=== PATIENT | female | born 1960 | race Caucasian/White ===

== ENCOUNTER 2020-03-04 12:36 | Outpatient (CLI) | payer OTHER ==
--- NOTE | 2020-03-04 13:26 | RAD ---
EXAM: 2 views of the thoracic spine HISTORY: Thoracic spine pain COMPARISON: None FINDINGS: 2 views of the thoracic spine shows normal height and alignment of the vertebral bodies without fracture or subluxation. Mild diffuse degenerative changes are seen with intervertebral disc space narrowing and osteophyte formation. IMPRESSION: Mild degenerative changes of the thoracic spine without acute osseous abnormality.
--- NOTE | 2020-03-04 13:28 | RAD ---
EXAM: 5 views of the cervical spine HISTORY: Chronic neck pain COMPARISON: None FINDINGS: AP, lateral, flexion/extension, and open mouth odontoid views of the cervical spine shows n ormal height and alignment of the vertebral bodies without fracture or subluxation. Moderate degenerative changes are seen in the lower cervical spine with intervertebral disc space narrowing an d osteophyte formation at C5/6 and C6/7. No prevertebral soft tissue swelling is seen. Alignment is unchanged with flexion and extension. IMPRESSION: Degenerative changes of the lower cervical spine as above.
--- NOTE | 2020-03-04 16:38 | MRI ---
Exam: MRI cervical spine without contrast HISTORY: Neck pain.. COMPARISON: None FINDINGS: Appropriate T1 marrow signal intensity of the cervical vertebra. Cervical spine vertebral body heigh t is maintained. No fracture. No significant STIR hyperintensity to suggest vertebral body edema or ligamentous injury Visualized brain parenchyma, cervicomedullary junction, cervical cord and the upper thoracic cord hav e a normal size and signal intensity C2-C3: No significant posterior disc abnormality. No significant central canal stenosis or significan t neural foraminal narrowing C3-C4: No significant posterior disc abnormality. No significant central canal stenosis or significan t neural foraminal narrowing C4-C5: Broad-based disc bulge abuts the thecal sac. Mild central canal stenosis. Mild bilateral neura l foraminal narrowing due to uncovertebral hypertrophy C5-C6: Desiccation with moderate loss of disc space height. Broad-based discussed by braden saab e thecal sac and nearly effaces the ventral subarachnoid space. Mild central canal stenosis. Mild bilateral neural foraminal narrowing due to uncovertebral hypertrophy. C6-C7: Disc desiccation with mild loss of disc space height. Broad-based discussed by braden pennington he thecal sac. Mild central canal stenosis. Mild to moderate bilateral neural foraminal narrowing. C7-T1: No significant posterior disc abnormality. No significant central canal stenosis or significan t neural foraminal narrowing. IMPRESSION: Degenerative changes of the cervical spine as detailed above.
--- NOTE | 2020-03-04 16:44 | MRI ---
MRI thoracic spine noncontrast: 03/04/2020 HISTORY: 59-year-old male with mid back pain: M 55.6 thoracic spine pain COMPARISON: None FINDINGS: Exaggerated kyphosis of mid thoracic spine. Vertebral body heights are maintained. Normal bone marrow signal. No scoliosis. Mild-moderate disc space narrowing at multiple levels throughout mid and lower thoracic spine. Disc space narrowing is radius at T9-10, where there is mild endplate irregularity, followed by T10-1 1. No major pathology of perivertebral spaces. Numerous tiny disc protrusions, mostly broad-based but some focal, indent the ventral surface of the thecal sac throughout most levels of the upper, mid, and lower thoracic spine. These are larger at T9-T10 and especially T10-11: At T9-T10, there is a small central and bilateral paracentral disc herniation that abuts and slightly indents the ventral surface of the spinal cord. At T10-11, there is a larger, small to moderate-sized central and bilateral paracentral disc herniati on that indents the ventral surface of the spinal cord, slightly posteriorly displaces it. At this level, there is mild to moderate central spinal canal stenosis and moderate thecal sac stenosis. No high-grade neural foraminal stenosis at any level. There is a 0.9 x 0.5 x 0.5 cm nerve root sleeve cyst in the left C7-T1 neural foramen. IMPRESSION: 1.) Disc herniation at T10-11, mildly impinging on lower thoracic spinal cord. 2) small or disc herniation at T9-T10, mildly impinging on lower thoracic spinal cord, to a lesser de gree than at T10-11. 3) multilevel mild to moderate thoracic degenerative disc disease. 4) exaggerated kyphosis.
== END 2020-03-04 12:37 | disposition home or self-care (01) ==
LOC: SCSMRI 12:36
PROVIDERS: ATTEND Neurological Surgery
DX: M54.6 Pain in thoracic spine (principal); M54.2 Cervicalgia; M25.561 Pain in right knee; M25.562 Pain in left knee; M25.521 Pain in right elbow; M25.522 Pain in left elbow; M79.671 Pain in right foot; M79.672 Pain in left foot; M47.812 Spondylosis without myelopathy or radiculopathy, cervical region; M47.814 Spondylosis without myelopathy or radiculopathy, thoracic region; M51.24 Other intervertebral disc displacement, thoracic region; M25.80 Other specified joint disorders, unspecified joint; M51.34 Other intervertebral disc degeneration, thoracic region; M40.294 Other kyphosis, thoracic region
CPT/HCPCS: 72050; 72070; 72141; 72146

== ENCOUNTER 2023-01-25 17:18 | Outpatient (CLI) | payer OTHER | END 2023-01-25 17:19 | disposition home or self-care (01) | LOC: SCSRAD 17:18 | PROVIDERS: ATTEND Nurse Practitioner Family | DX: M25.561 Pain in right knee (principal); M17.11 Unilateral primary osteoarthritis, right knee | CPT/HCPCS: 36415; 80053; 80061; 85025 ==

== ENCOUNTER 2023-04-17 15:51 | Outpatient (CLI) | payer OTHER | END 2023-04-17 15:52 | disposition home or self-care (01) | LOC: SCSRAD 15:51 | PROVIDERS: ATTEND Family Medicine | DX: S69.92XA Unspecified injury of left wrist, hand and finger(s), initial encounter (principal) ==

== ENCOUNTER 2023-07-31 05:49 | Day surgery (SDC) | payer OTHER ==
[2023-07-25 14:04] VITALS: BMI 31.7
[2023-07-31] MEDS ORDERED: EPINEPHrine 1 MG/ML VIAL ONE (06:09)
[2023-07-31] MEDS ORDERED: Bupivacaine PF 0.5% 30 ML VIAL ONE (06:10)
[2023-07-31] MEDS ORDERED: Thrombin 5000 UNITS/5 ML VIAL ONE (06:10)
[2023-07-31] MEDS ORDERED: Rocuronium Bromide 10 MG/ML (10ML VIAL) ONE ×2 (06:36→07:05)
[2023-07-31] MEDS ORDERED: fentaNYL PF 100 MCG/2 ML SYRINGE ONE (06:36)
[2023-07-31] MEDS ORDERED: Lidocaine 2% PF 5 ML VIAL ONE (06:36)
[2023-07-31] MEDS ORDERED: PROPOFOL 20 ML ONE (06:36)
[2023-07-31] MEDS ORDERED: Sodium Chloride 0.9% 100 ML ONE ×2 (06:44→10:36)
[2023-07-31] MEDS ORDERED: CEFAZOLIN 2 GM VIAL ONE ×2 (06:44→10:36)
[2023-07-31] MEDS ORDERED: Famotidine/PF 20 mg/2ml Vial ONE (06:56)
[2023-07-31] MEDS ORDERED: HYDROmorphone 0.5 MG/0.5 ML SYRINGE ONE (06:56)
[2023-07-31] MEDS ORDERED: Hydrocortisone Sod Succ/PF 100 mg/2 ml Vial ONE (06:57)
[2023-07-31] MEDS ORDERED: Lidocaine 1% PF 5 ML VIAL ONE (07:05)
[2023-07-31] MEDS ORDERED: Ondansetron PF 4 MG/2 ML Vial ONE ×2 (07:05→07:31)
[2023-07-31] MEDS ORDERED: PROPOFOL 200 MG/20 ML VIAL ONE (07:05)
[2023-07-31] MEDS ORDERED: Dexamethasone 20 MG/5 ML VIAL ONE (07:05)
[2023-07-31] MEDS ORDERED: Dexamethasone 4 mg/ml Vial ONE (07:31)
[2023-07-31] MEDS ORDERED: SUGAMMADEX SODIUM 200 MG/2 ML VIAL ONE (07:35)
[2023-07-31] MEDS ORDERED: fentaNYL 50 mcg/mL 1 mL Vial ONE (08:53)
[2023-07-31] MEDS ORDERED: hydrALAZINE 20 MG/ML VIAL ONE (09:07)
[2023-07-31] MEDS ORDERED: HYDROcodone/Acetaminophen 5/325 mg Tablet ONE (10:12)
== END 2023-07-31 11:33 | disposition home or self-care (01) ==
LOC: SDC 05:49
PROVIDERS: ATTEND Neurological Surgery
PROC: 0SG107J Fusion of 2 or more Lumbar Vertebral Joints with Autologous Tissue Substitute, Posterior Approach, Anterior Column, Open Approach (ICD-10-PCS; principal; 2023-07-31)
DX: M48.062 Spinal stenosis, lumbar region with neurogenic claudication (principal); M43.16 Spondylolisthesis, lumbar region; M47.816 Spondylosis without myelopathy or radiculopathy, lumbar region; E03.9 Hypothyroidism, unspecified; M06.9 Rheumatoid arthritis, unspecified; M34.9 Systemic sclerosis, unspecified; Z79.899 Other long term (current) drug therapy
CPT/HCPCS: 36416; C1713; J0171; J0360; J1100; J1170; J1720; J2001; J2405; J2704; J3010; J3490; S0020; S0028

== ENCOUNTER 2024-07-28 18:01 | Inpatient (IN) | payer MEDICARE, MEDICAID ==
[2024-07-28 20:58] LABS: #Basophils 0.05 10x3/uL (0.0-0.2); %Basophils 0.4 % (0.0-1.0); %Eosinophils 0.6 % (0.0-10.0); %Lymphocytes 14.1 % (21.0-51.0); %Neutrophils 76.4 % (42.0-75.0); Hematocrit 39.6 % (36.0-47.0); Hemoglobin 12.3 g/dL (12.0-16.0); Mean Corpuscular HGB CONC 31.1 g/dL (32.0-36.0); Mean Corpuscular Hemoglobin 25.7 pg (27.0-31.0); Mean Corpuscular Volume 82.7 fL (78.0-98.0); Mean Platelet Volume 9.9 fL (7.4-10.4); Platelet Count 464 10x3/uL (130-400); RBC Distribution Width 17.1 % (11.5-14.5); Red Blood Cell (RBC) Count 4.79 mill/uL (4.20-5.40)
[2024-07-28 21:13] LABS: ALT (SGPT) 30 U/L (8-55); AST (SGOT) 24 U/L (5-34); Alkaline Phosphatase 277 U/L (40-110); Anion Gap 17 mmol/L (10-20); BUN (Urea Nitrogen) 6 mg/dL (9.8-20.1); Bilirubin, Total 1.1 mg/dL (0.2-1.2); Calc. Creatinine Clearance 0 mL/min (70-130); Calcium 9.9 mg/dL (7.8-10.44); Carbon Dioxide 23 mmol/L (23-31); Chloride 100 mmol/L (98-107); Estimated GFR 100; Globulin 3.8 g/dL (2.4-3.5); Glucose 117 mg/dL (80-115); Lipase 18 U/L (8-78); Potassium 2.8 mmol/L (3.5-5.1); Protein, Total 6.8 g/dL (5.8-8.1); Sodium 137 mmol/L (136-145)
[2024-07-28] MEDS ORDERED: NS 0.9% w/ 20 MEQ KCL 1,000 ML ONE (21:42)
[2024-07-28] MEDS ORDERED: Ondansetron ODT 4 MG TAB SL PRN (23:00)
[2024-07-28] MEDS ORDERED: Acetaminophen 325 MG TAB PO PRN (23:39)
[2024-07-28] MEDS ORDERED: Potassium Chloride 40 MEQ in Premix 1 BAG IVPB SCH (23:45)
[2024-07-29 00:08] VITALS: BMI 25.9
[2024-07-29] MEDS: Potassium Chloride 20 MEQ in Premix 1 BAG IVPB SCH (00:17)
[2024-07-29] MEDS: Sodium Chloride 0.9% 1,000 ML IV SCH (00:17)
[2024-07-29] MEDS: Ketorolac Tromethamine 30 MG (1 mL) VIAL ONE (02:14)
[2024-07-29] MEDS: Ondansetron PF 4 MG/2 ML Vial IVP PRN (02:14)
[2024-07-29] MEDS: Ketorolac Tromethamine 30 MG (1 mL) VIAL IVP SCH (02:17)
[2024-07-29] MEDS: Morphine 2 MG/ML VIAL SLOW IVP SCH (02:21)
[2024-07-29 04:56] LABS: #Basophils 0.03 10x3/uL (0.0-0.2); %Basophils 0.3 % (0.0-1.0); %Eosinophils 0.5 % (0.0-10.0); %Lymphocytes 14.6 % (21.0-51.0); %Monocytes 8.9 % (0.0-10.0); %Neutrophils 75.2 % (42.0-75.0); Hematocrit 31.3 % (36.0-47.0); Hemoglobin 9.8 g/dL (12.0-16.0); Mean Corpuscular HGB CONC 31.3 g/dL (32.0-36.0); Mean Corpuscular Hemoglobin 25.9 pg (27.0-31.0); Mean Corpuscular Volume 82.8 fL (78.0-98.0); Mean Platelet Volume 10.5 fL (7.4-10.4); Platelet Count 359 10x3/uL (130-400); RBC Distribution Width 16.9 % (11.5-14.5); Red Blood Cell (RBC) Count 3.78 mill/uL (4.20-5.40)
[2024-07-29 05:28] LABS: Anion Gap 11 mmol/L (10-20); BUN (Urea Nitrogen) 5 mg/dL (9.8-20.1); Calc. Creatinine Clearance 129 mL/min (70-130); Carbon Dioxide 21 mmol/L (23-31); Chloride 108 mmol/L (98-107); Estimated GFR 107; Glucose 100 mg/dL (80-115); Potassium 3.1 mmol/L (3.5-5.1); Sodium 137 mmol/L (136-145)
[2024-07-29 06:43] LABS: Bacteria/HPF None Seen HPF (None Seen); Bilirubin Negative (Negative); Blood, Urine Negative (Negative); CAUTI Indications for Culture Dysuria,urgency,freq; Clarity Clear (Clear); Glucose, Urine (Dipstick) Normal (Negative); Ketone, Urine Negative (Negative); Leukocyte Negative Leu/uL (Negative); Nitrite Negative (Negative); Protein, Urine (Dipstick) Negative (Neg-Trace); RBC/HPF 0-3 HPF (0-3); Specific Gravity, Urine 1.005 (1.002-1.036); Squamous Epithelial 0-3 HPF (0-3); Urobilinogen Normal mg/dL (Less than 2); WBC/HPF 0-3 HPF (0-3); pH, Urine 7.5 (5.0-9.0)
[2024-07-29 06:47] LABS: Urine Culture Reflex No No
[2024-07-29 07:34] LABS: Calcium 8.5 mg/dL (7.8-10.44); Magnesium 1.7 mg/dL (1.6-2.6)
[2024-07-29 08:11] LABS: Influenza A by NAA Not Detected (NotDetected); Influenza B by NAA Not Detected (NotDetected); SARS-CoV-2 NAA Rapid Test Not Detected (NotDetected)
[2024-07-29] MEDS ORDERED: Pantoprazole 40 MG VIAL IVP SCH (09:00)
[2024-07-29] MEDS ORDERED: PROPOFOL 20 ML ONE (12:02)
[2024-07-29] MEDS ORDERED: Midazolam HCl 2 mg/2 ml Vial ONE (12:02)
[2024-07-29] MEDS ORDERED: Lidocaine 2% PF 5 ML VIAL ONE (12:06)
[2024-07-29 13:00] VITALS: BMI 25.9
[2024-07-29] MEDS: HYDROcodone/Acetaminophen 5/325 mg Tablet PO PRN (18:23)
[2024-07-29] MEDS: Famotidine 20 MG TAB PO SCH (20:32)
[2024-07-29] MEDS: Pregabalin 50 MG CAP PO SCH (20:33)
[2024-07-30 05:39] LABS: #Basophils 0.04 10x3/uL (0.0-0.2); %Basophils 0.6 % (0.0-1.0); %Eosinophils 1.6 % (0.0-10.0); %Lymphocytes 16.9 % (21.0-51.0); %Monocytes 10.6 % (0.0-10.0); %Neutrophils 69.7 % (42.0-75.0); Hemoglobin 9.9 g/dL (12.0-16.0); Mean Corpuscular HGB CONC 30.9 g/dL (32.0-36.0); Mean Corpuscular Hemoglobin 25.6 pg (27.0-31.0); Mean Corpuscular Volume 82.7 fL (78.0-98.0); Mean Platelet Volume 10.4 fL (7.4-10.4); Platelet Count 368 10x3/uL (130-400); RBC Distribution Width 17.1 % (11.5-14.5); Red Blood Cell (RBC) Count 3.87 mill/uL (4.20-5.40)
[2024-07-30 05:41] LABS: Anion Gap 13 mmol/L (10-20); BUN (Urea Nitrogen) 4 mg/dL (9.8-20.1); Calc. Creatinine Clearance 134 mL/min (70-130); Calcium 8.5 mg/dL (7.8-10.44); Carbon Dioxide 23 mmol/L (23-31); Chloride 108 mmol/L (98-107); Estimated GFR 108; Glucose 83 mg/dL (80-115); Potassium 3.1 mmol/L (3.5-5.1); Sodium 141 mmol/L (136-145)
[2024-07-30 11:51] VITALS: BP 109/57; TEMP 97.7
[2024-07-30] MEDS ORDERED: ALPRAZolam 0.25 MG TAB PO PRN (13:47)
== END 2024-07-30 13:58 | disposition home health service (06) | DRG 391 ==
LOC: ERS 18:01 → OBS 22:49 → OBSVTOIN 07-29 13:05
PROVIDERS: ADMIT Internal Medicine; ATTEND Family Medicine
PROC: 0D738ZZ Dilation of Lower Esophagus, Via Natural or Artificial Opening Endoscopic (ICD-10-PCS; principal; 2024-07-29)
DX: K22.2 Esophageal obstruction (principal); E43 Unspecified severe protein-calorie malnutrition; E87.6 Hypokalemia; M06.9 Rheumatoid arthritis, unspecified; Z66 Do not resuscitate; R13.10 Dysphagia, unspecified; M19.90 Unspecified osteoarthritis, unspecified site; I73.00 Raynaud's syndrome without gangrene; Z88.5 Allergy status to narcotic agent; Z88.8 Allergy status to other drugs, medicaments and biological substances; Z90.710 Acquired absence of both cervix and uterus; Z68.25 Body mass index [BMI] 25.0-25.9, adult
CPT/HCPCS: 36415; 36416; 80048; 80053; 81001; 83690; 83735; 85025; 93005; 96374; 96375; 96376; G0378; J1885; J2250; J2272; J2405; J2704; J3480; J7030